=== PATIENT | male | born 1985 | race Caucasian/White ===

== ENCOUNTER 2019-09-05 07:57 | Day surgery (SDC) | payer OTHER, SELFPAY ==
[2019-09-03 13:54] VITALS: BMI 29.8
[2019-09-05 08:06] VITALS: BP 119/77; PULSE 72; RESP 18; TEMP 36.2; O2SAT 98
--- NOTE | 2019-09-05 08:16 | ANES.PREANE2 ---
Pre-Anesthetic Assessment Pre-Anesthetic Assessment: Height/Weight: Height 1.83 m Weight 99.79 kg Preop Diagnosis: Change in bowel habits Proposed Procedure: Operation Date: 09/05/19 08:30 Proposed Procedures p EGD/COLONSCOPY [id number] K21.9 R19.7(Not Applicable) - Timothy Suggs MD s Colonoscopy(Not Applicable) - Timothy Suggs MD Familial anesthetic complications: None Was Beta Rafael taken within 24 hours: N/A Last intake: NPO > 8 hrs Social: Social History: No alcohol and No tobacco Exam: Pre-Anes Outpt Exam: alert, oriented x 3, clear to auscultation bilaterally and regular rate & rhythm Airway: Cervical ROM: WNL MP: 2 Dentition: Full Pulmonary: Pulmonary: None reported Comments: B/L PE now with lung scarring, unknown etiology, still able to achieve 8 METS CV/HEM: CV/HEM: None reported : : None reported Hepatic: Hepatic: None reported GI: GI: GERD Metabolic: Metabolic: None reported Musc/skel: Musc/skel: Lower Back Pain and None reported Neuropsych: Neuropsych: None reported Anesthetic Plan: ASA status: 2 Anesthesia: MAC Risk of > 500 ml blood loss (7ml/kg in children): No PFSH Anesthesia PFSH: Medical History (Updated 08/16/19 @ 07:00 by Timothy Suggs MD) Abdominal pain Diarrhea GERD (gastroesophageal reflux disease) PTSD (post-traumatic stress disorder) Pulmonary embolism Family History Denies family history of Anesthesia complication Bleeding disorder Social History Smoking and tobacco status: never smoked Second hand smoke exposure: No Alcohol intake: current Alcohol intake frequency: holidays/special occasions only Desire information about alcohol rehabilitation?: No Adopted: No Caregiver/support person: Yes Lives independently: Yes Household members: spouse Housing: House Marital status: service: Yes Current occupational exposures/hazards: No Pets and animals: No History of recent travel: No Sexually active: Yes Current gender identity: Male and Female Yoselin/Worship: Mandaeism Special yoselin needs: No Agree to transfusion: No Financial difficulty paying for basics: Decline to Answer Data Anesthesia Cardiac Studies: No Data to Display
--- NOTE | 2019-09-05 08:47 | W.PM.OPSUD ---
Surgery/Procedure H&P Update DATE OF PROCEDURE: September 05, 2019 DATE H&P PERFORMED: 08/15/19 H&P UPDATE INFORMATION: I have reviewed H&P completed within last 30 days, I have examined patient prior to procedure and No changes to prior documentation PREOP DIAGNOSIS: Change in bowel habits PRIMARY INDICATION FOR PROCEDURE: The same PLANNED PROCEDURE: Operation Date: 09/05/19 08:30 Proposed Procedures p EGD/COLONSCOPY [id number] K21.9 R19.7(Not Applicable) - Timothy Suggs MD s Colonoscopy(Not Applicable) - Timothy Suggs MD
[2019-09-05 09:08] VITALS: BP 117/76; PULSE 73; RESP 16; TEMP 37; O2SAT 98
[2019-09-05 09:18] VITALS: BP 114/82; PULSE 65; RESP 16; O2SAT 96
[2019-09-05] MEDS: sodium chloride 0.9% 1,000 ML 30 ML IV (09:31)
--- NOTE | 2019-09-05 09:32 | ANE.PACU2 ---
Inpatient post-anesthesia follow up: Airway intact: Yes Vital signs: Temperature 98.6 F Pulse Rate 65 Respiratory Rate 16 Blood Pressure 114/82 Pulse Oximetry 96 Oxygen Delivery Me thod Room Air Oxygen Flow Rate Fraction of Inspir ed Oxygen Hydration adequate: Yes Nausea and vomiting: No Mental status: Baseline
== END 2019-09-05 09:33 | disposition home or self-care (01) ==
PROVIDERS: PCP Emergency Medicine Emergency Medical Services; Visit Provider Surgery
PROC: 0DJ08ZZ Inspection of Upper Intestinal Tract, Via Natural or Artificial Opening Endoscopic (ICD-10-PCS; CPT 43235; principal; 2019-09-05 08:30)
PROC: 0DJD8ZZ Inspection of Lower Intestinal Tract, Via Natural or Artificial Opening Endoscopic (ICD-10-PCS; CPT 45378; 2019-09-05 08:30)
DX: R19.4 Change in bowel habit (principal); K21.9 Gastro-esophageal reflux disease without esophagitis; K29.70 Gastritis, unspecified, without bleeding; Z86.711 Personal history of pulmonary embolism
CPT/HCPCS: 12345; 43235; 45378; 82274; 83630; 87493; 87506; J2704; J3010; J7030

== ENCOUNTER 2020-11-24 16:40 | Outpatient (CLI) | payer OTHER, SELFPAY ==
[2020-11-24 17:36] LABS: Homocysteine 11.29
[2020-11-24 17:47] LABS: Folate Level 6.4 ng/mL (4.5-32.2)
[2020-11-24 17:48] LABS: Vitamin B12 567 pg/mL (232-1245)
== END 2020-11-24 16:41 | disposition home or self-care (01) ==
PROVIDERS: PCP Emergency Medicine Emergency Medical Services; Visit Provider Internal Medicine Pulmonary Disease
DX: Q87.40 Marfan syndrome, unspecified (principal); I26.99 Other pulmonary embolism without acute cor pulmonale
CPT/HCPCS: 36415; 82607; 82746; 83090